=== PATIENT | female | born 1990 | race Caucasian/White ===

== ENCOUNTER 2023-02-02 12:02 | Emergency (ER) | payer BC, SELFPAY ==
[2023-02-02 12:06] VITALS: BP 121/80; PULSE 75; RESP 18; TEMP 36.8; O2SAT 100; BMI 24.0
--- NOTE | 2023-02-02 12:40 | US_ITS ---
The [address] [address] Patient Name: TAMRA LYON MRN: [id number] date: 1990 Sex: F Assigned Patient Location: ER Current Patient Location: ED[facility] Accession/Order Number: [id number] Exam Date: 02/02/2023 12:45 Report Date: 02/02/2023 14:12 At the request of: FLORENCIO BERUMEN Procedure: US right upper quadrant EXAM: US right upper quadrant HISTORY: N/V, RUQ abd pain COMPARISON: None. TECHNIQUE: Grayscale, color and Doppler FINDINGS: The liver is normal in size, contour and echotexture. No focal mass. Hepatopedal flow in the main portal vein with a velocity of 24 cm/s. The gallbladder is normal in size. The wall measures 1.7 mm, normal. Negative sonographic Chavez sign. The common bile duct measures 4 mm, normal. The visualized pancreas is normal The right kidney is normal measuring 10.4 x 5.1 x 3.9 cm. US/US right upper quadrant IMPRESSION: No acute abnormality Electronically authenticated by: FELECIA VASQUEZ Date: 02/02/2023 14:12
[2023-02-02] MEDS: ONDANSETRON 4 MG RAPDIS TABLET SL (12:47)
[2023-02-02] MEDS: HYOSCYAMINE SULFATE 0.125 MG TAB.SUBL SL (12:47)
[2023-02-02 13:09] LABS: Basophils Percent Auto 0.4 % (0.2-2.0); Eosinophils Absolute Auto 0.2 10^3/uL (0.0-0.7); Eosinophils Percent Auto 2.5 % (0.9-7.0); Hematocrit 36.9 % (36.0-48.0); Hemoglobin 12.6 g/dL (12.0-16.0); Immature Granulocytes Abs Auto 0.02 10^3/uL (0.00-0.03); Immature Granulocytes Pct Auto 0.3 % (0.0-0.5); Lymphocytes Absolute Auto 1.5 10^3/uL (1.2-3.8); Lymphocytes Percent Auto 21.7 % (20.5-60.0); Mean Corpuscular HGB Conc 34.1 g/dL (29.9-35.2); Mean Corpuscular Hemoglobin 31.5 pg (26.7-34.0); Mean Corpuscular Volume 92.3 fL (81.0-99.0); Mean Platelet Volume 9.8 fL (9.5-13.5); Monocytes Absolute Auto 0.6 10^3/uL (0.3-0.8); Neutrophils Absolute Auto 4.6 10^3/uL (1.4-6.5); Neutrophils Percent Auto 66.1 % (43.0-75.0); Platelet Count 207 10^3/uL (150-450); Red Cell Distribution Width 12.1 % (11.0-15.0); White Blood Count 6.9 10^3/uL (4.0-11.0)
[2023-02-02 13:25] LABS: Alanine Aminotransferase 27 U/L (14-59); Albumin Level 3.5 g/dL (3.4-5.0); Alkaline Phosphatase 53 U/L (46-116); Anion Gap 10.4; Aspartate Amino Transferase 16 U/L (15-37); Bilirubin Total 0.9 mg/dL (0.2-1.0); Calcium 8.5 mg/dL (8.5-10.1); Carbon Dioxide 29.2 mmol/L (21.0-32.0); Chloride 104 mmol/L (98-107); Estimated GFR (African America >60 (>=60); Estimated GFR (Non-African Ame >60 (>=60); Globulin 3.5 g/dL; Glucose 94 mg/dL (74-106); Potassium 3.6 mmol/L (3.5-5.1); Sodium 140 mmol/L (136-145)
--- NOTE | 2023-02-02 13:45 | ED.NAVMDI1 ---
HPI - Nausea/Vomiting/Diarrhea General Chief complaint: Nausea/Vomiting/Diarrhea Stated complaint: DIRRHEA Time Seen by Provider: 02/02/23 12:10 Source: patient Mode of arrival: walk-in Limitations: no limitations History of Present Illness HPI Narrative: patient developed nausea, vomiting and diarrhea three days ago. She also had generalized abdominal cramping. By this morning she was able to keep down liquids and the vomiting had stopped but she still had nausea and diarrhea along with diffuse abdominal pain. No fever or chills. No urinary symptoms. Related Data Home Medications Medication Instructions Recorded Confirmed norethindrone 1 mg-ethinyl 1 tab PO DAILY 02/02/23 02/02/23 estradiol 20 mcg (21)-iron 75 mg (7) tablet (June FE 08/08 (28)) Previous Rx's Medication Instructions Recorded hyoscyamine sulfate 0.125 mg 0.125 mg PO Q6H PRN abdominal pain 02/02/23 sublingual tablet (Levsin/SL) #20 tabs ondansetron 4 mg disintegrating 4 mg PO Q6H PRN nausea and 02/02/23 tablet vomiting #20 tabs Allergies Allergy/AdvReac Type Severity Reaction Status Date / Time amoxicillin Allergy Intermediate Verified 02/02/23 12:11 Exam Narrative Exam Narrative: Nurses notes and vital signs reviewed and patient is not hypoxic. afebrile General: Well-appearing and in no apparent distress. Skin: Warm, dry, no pallor noted. No rash. Head: Normocephalic, atraumatic. Eye: Pupils are equal, round and EOMI. No scleral icterus. Ears, Nose, Mouth, and Throat: Oral mucosa is moist Cardiovascular: Regular Rate and Rhythm without murmur, gallop or rub. Respiratory: No accessory muscle use or respiratory distress. Lungs are clear to auscultation, no wheezing, rales or rhonchi Back: No CVA tenderness Musculoskeletal: normal ROM, no calf or popliteal tenderness, no lower extremity edema/swelling GI: Abdomen is soft, non-distended. Normal bowel sounds. No masses appreciated. mild epigastric and right upper quadrant tenderness to palpation. No rebound, guarding, or rigidity noted. Neurological: A&O x4. No cranial nerve dysfunction observed. No truncal ataxia. Moves all extremities. Sensation intact. Psychiatric: Cooperative and interactive. Normal mood and affect. Constitutional Vital Signs, click to edit/add: Last Vital Signs Temp 98.2 F 02/02/23 12:06 Pulse 75 02/02/23 12:06 Resp 18 02/02/23 12:06 BP 121/80 H 02/02/23 12:06 Pulse Ox 100 02/02/23 12:06 O2 Del Method Room Air 02/02/23 12:06 Course Vital Signs Vital signs: Vital Signs Temperature 98.2 F 02/02/23 12:06 Pulse Rate 75 02/02/23 12:06 Respiratory Rate 18 02/02/23 12:06 Blood Pressure 121/80 H 02/02/23 12:06 Pulse Oximetry 100 02/02/23 12:06 Oxygen Delivery Method Room Air 02/02/23 12:06 Temperature 98.2 F 02/02/23 12:06 Pulse Rate 75 02/02/23 12:06 Respiratory Rate 18 02/02/23 12:06 Blood Pressure 121/80 H 02/02/23 12:06 Pulse Oximetry 100 02/02/23 12:06 Oxygen Delivery Method Room Air 02/02/23 12:06 MDM - Nausea/Vomiting/Diarrhea MDM Narrative Medical decision making narrative: patient felt better after receiving oral dissolvable Zofran and oral dissolvable Levsin. Blood tests were unremarkable. Gallbladder ultrasound is unremarkable. She was discharged home with prescriptions for more Zofran and Levsin and instructions to follow-up with her primary care provider and return to the emergency Department as needed. I would expect the diarrhea to improve over the next few days Lab Data Attestation: I reviewed the patient's lab results. Labs: Lab Results 02/02/23 Range/Units 12:57 WBC 6.9 (4.0-11.0) 10^3/uL RBC 4.00 L (4.20-5.40) 10^6/uL Hgb 12.6 (12.0-16.0) g/dL Hct 36.9 (36.0-48.0) % MCV 92.3 (81.0-99.0) fL MCH 31.5 (26.7-34.0) pg MCHC 34.1 (29.9-35.2) g/dL RDW 12.1 (11.0-15.0) % Plt Count 207 (150-450) 10^3/uL MPV 9.8 (9.5-13.5) fL Neut % (Auto) 66.1 (43.0-75.0) % Lymph % (Auto) 21.7 (20.5-60.0) % [place] % (Auto) 9.0 (1.7-12.0) % Eos % (Auto) 2.5 (0.9-7.0) % Baso % (Auto) 0.4 (0.2-2.0) % Neut # (Auto) 4.6 (1.4-6.5) 10^3/uL Lymph # (Auto) 1.5 (1.2-3.8) 10^3/uL [place] # (Auto) 0.6 (0.3-0.8) 10^3/uL Eos # (Auto) 0.2 (0.0-0.7) 10^3/uL Baso # (Auto) 0.0 (0.0-0.1) 10^3/uL Abs Immat Gran (auto) 0.02 (0.00-0.03) 10^3/uL Imm/Tot Granulo (auto) 0.3 (0.0-0.5) % Sodium 140 (136-145) mmol/L Potassium 3.6 (3.5-5.1) mmol/L Chloride 104 (98-107) mmol/L Carbon Dioxide 29.2 (21.0-32.0) mmol/L Anion Gap 10.4 BUN 9.0 (7.0-18.0) mg/dL Creatinine 0.75 (0.55-1.02) mg/dL Est GFR ( Amer) >60 (>=60) Est GFR (Non-Af Amer) >60 (>=60) BUN/Creatinine Ratio 12.0 Glucose 94 (74-106) mg/dL Calcium 8.5 (8.5-10.1) mg/dL Total Bilirubin 0.9 (0.2-1.0) mg/dL AST 16 (15-37) U/L ALT 27 (14-59) U/L Alkaline Phosphatase 53 (46-116) U/L Total Protein 7.0 (6.4-8.2) g/dL Albumin 3.5 (3.4-5.0) g/dL Globulin 3.5 g/dL Albumin/Globulin Ratio 1.0 Imaging Data RUQ US: Radiologist's impression: Patient Name: TAMRA LYON MRN: [id number] date: 1990 Sex: F Assigned Patient Location: ER Current Patient Location: ED.MAIN Accession/Order Number: [id number] Exam Date: 02/02/2023 12:45 Report Date: 02/02/2023 14:12 At the request of: FLORENCIO BERUMEN Procedure: US right upper quadrant EXAM: US right upper quadrant HISTORY: N/V, RUQ abd pain COMPARISON: None. TECHNIQUE: Grayscale, color and Doppler FINDINGS: The liver is normal in size, contour and echotexture. No focal mass. Hepatopedal flow in the main portal vein with a velocity of 24 cm/s. The gallbladder is normal in size. The wall measures 1.7 mm, normal. Negative sonographic Chavez sign. The common bile duct measures 4 mm, normal. The visualized pancreas is normal The right kidney is normal measuring 10.4 x 5.1 x 3.9 cm. IMPRESSION: No acute abnormality Electronically authenticated by: FELECIA VASQUEZ Date: 02/02/2023 14:12 Discharge Plan Discharge Chief Complaint: Nausea/Vomiting/Diarrhea Clinical Impression: Gastroenteritis Patient Disposition: Home, Self-Care Time of Disposition Decision: 13:45 Prescriptions / Home Meds: New hyoscyamine sulfate [Levsin/SL] 0.125 mg tablet, sublingual 0.125 mg PO Q6H PRN (Reason: abdominal pain) Qty: 20 0RF ondansetron 4 mg tablet,disintegrating 4 mg PO Q6H PRN (Reason: nausea and vomiting) Qty: 20 0RF No Action norethindrone-e.estradiol-iron [08/08 (28)] 1 mg-20 mcg (21)/75 mg (7) tablet 1 tab PO DAILY Stand Alone Forms: Portal Instructions Referrals: Shaikh Chatterjee MD [Primary Care Provider] - 1 week
== END 2023-02-02 14:28 | disposition home or self-care (01) ==
PROVIDERS: Emergency Provider Emergency Medicine; PCP Internal Medicine
DX: K52.9 Noninfective gastroenteritis and colitis, unspecified (principal)
CPT/HCPCS: 36415; 76705; 80053; 85025; 87507; 99284

== ENCOUNTER 2023-08-25 16:21 | Outpatient (OUT) | payer OTHER, SELFPAY ==
[2023-08-25 16:46] LABS: Basophils Percent Auto 0.6 % (0.2-2.0); Eosinophils Absolute Auto 0.3 10^3/uL (0.0-0.7); Eosinophils Percent Auto 3.7 % (0.9-7.0); Hematocrit 39.8 % (36.0-48.0); Hemoglobin 13.5 g/dL (12.0-16.0); Immature Granulocytes Abs Auto 0.01 10^3/uL (0.00-0.03); Immature Granulocytes Pct Auto 0.1 % (0.0-0.5); Lymphocytes Percent Auto 28.8 % (20.5-60.0); Mean Corpuscular HGB Conc 33.9 g/dL (29.9-35.2); Mean Corpuscular Hemoglobin 31.3 pg (26.7-34.0); Mean Corpuscular Volume 92.1 fL (81.0-99.0); Monocytes Absolute Auto 0.7 10^3/uL (0.3-0.8); Monocytes Percent Auto 9.6 % (1.7-12.0); Neutrophils Absolute Auto 3.9 10^3/uL (1.4-6.5); Neutrophils Percent Auto 57.2 % (43.0-75.0); Platelet Count 225 10^3/uL (150-450); Red Blood Count 4.32 10^6/uL (4.20-5.40); White Blood Count 6.8 10^3/uL (4.0-11.0)
[2023-08-25 17:02] LABS: Erythrocyte Sedimentation Rate 16 mm/hr (<=20)
--- NOTE | 2023-08-25 17:07 | XR_ITS ---
The [address] [address] Patient Name: TAMRA STARK MRN: [id number] date: 1990 Sex: F Assigned Patient Location: LAB Current Patient Location: Accession/Order Number: [id number] Exam Date: 08/25/2023 16:59 Report Date: 08/26/2023 13:02 At the request of: SHAIKH MARION Procedure: XR sacroiliac joint MICHAEL EXAM: XR sacroiliac joint MICHAEL HISTORY: Sacroiliac pain M53.3 COMPARISON: There is no appropriate prior study for comparison. The alignment is anatomical. The lower lumbar spine and SI joints are unremarkable. There is no acute fracture or dislocation. The interarticular joint spaces are preserved. Pelvic phleboliths are noted. No significant soft tissue abnormality is noted. XR/XR sacroiliac joint MICHAEL IMPRESSION: No acute finding. Electronically authenticated by: DALE MENDEZ Date: 08/26/2023 13:02
[2023-08-25 17:21] LABS: Alanine Aminotransferase 18 U/L (14-59); Albumin Globulin Ratio 0.9; Albumin Level 3.7 g/dL (3.4-5.0); Alkaline Phosphatase 54 U/L (46-116); Anion Gap 12.9; Aspartate Amino Transferase 13 U/L (15-37); BUN Creatinine Ratio 13.6; Bilirubin Total 1.9 mg/dL (0.2-1.0); Calcium 8.8 mg/dL (8.5-10.1); Carbon Dioxide 28.6 mmol/L (21.0-32.0); Chloride 102 mmol/L (98-107); Estimated GFR (African America >60 (>=60); Estimated GFR (Non-African Ame >60 (>=60); Globulin 3.9 g/dL; Glucose 92 mg/dL (74-106); Potassium 3.5 mmol/L (3.5-5.1); Sodium 140 mmol/L (136-145); TSH W/ REFLEX FT4 3.106 uIU/mL (0.358-3.740); Total Protein 7.6 g/dL (6.4-8.2)
[2023-08-25 17:23] LABS: C Reactive Protein <0.50 mg/dL (<=0.50)
[2023-09-02 11:08] LABS: HLA B 27 Disease Association Negative (.)
== END 2023-08-25 16:22 | disposition home or self-care (01) ==
PROVIDERS: PCP Internal Medicine; Visit Provider Internal Medicine
DX: R94.6 Abnormal results of thyroid function studies (principal); M53.3 Sacrococcygeal disorders, not elsewhere classified; D69.3 Immune thrombocytopenic purpura
CPT/HCPCS: 36415; 72202; 80053; 81374; 84443; 85025; 85652; 86140

== ENCOUNTER 2023-09-04 08:49 | Outpatient (RCR) | payer OTHER, SELFPAY | END 2023-10-28 11:11 | disposition home or self-care (01) | LOC: PT 08:49 | PROVIDERS: PCP Internal Medicine; Visit Provider Internal Medicine | DX: M53.3 Sacrococcygeal disorders, not elsewhere classified (principal); M54.50 Low back pain, unspecified; M46.1 Sacroiliitis, not elsewhere classified | CPT/HCPCS: 97010; 97014; 97110; 97140; 97161 ==

== ENCOUNTER 2023-10-27 20:48 | Outpatient (REF) | payer OTHER, SELFPAY ==
[2023-11-03 15:09] LABS: Age Gdln ACOG Testing Note (.); HPV Aptima Negative (Negative); IGP, Aptima HPV, rfx 16/18,45 Note (.)
== END 2023-10-27 20:49 | disposition home or self-care (01) ==
LOC: LAB 20:48
PROVIDERS: PCP Internal Medicine; Visit Provider Obstetrics & Gynecology
DX: Z01.419 Encounter for gynecological examination (general) (routine) without abnormal findings (principal)
CPT/HCPCS: 87624; G0145

== ENCOUNTER 2025-03-08 19:45 | Outpatient (REF) | payer OTHER, SELFPAY ==
--- OUTSIDE RECORDS SUMMARY | 2025-03-08 14:00 | XMS_ITS | Encounter Summary ---
Author Organization [facility] Address [address] [place] [address] Care Team Providers Care Supervisor Pipelines Name Role Phone Shaikh FRANCISCO Chatterjee Primary Care Provider [phone] Reason for Visit * Reason Comments Well Women Visit Encounter Details Date Type Department Care Team (Latest Contact Info) Description 03/08/2025 2:00 PM EDT Procedure Visit [facility] [address] [place] [id number] Charlotte Sampson PA [address] [place], [id number] Well woman exam with routine gynecological exam; Uses control Social History Tobacco Use Types Packs/Day Years Used Date Smoking Tobacco: Every Day Cigarettes Comments Unknown Sex and Gender Information Value Date Recorded Sex Assigned at Not on file Legal Sex Female 7:10 PM EDT Gender Identity Not on file Sexual Orientation Not on file documented as of this encounter Last Filed Vital Signs Vital Sign Reading Time Taken Comments Blood Pressure 118/84 03/08/2025 2:00 PM EDT Pulse - - Temperature - - Respiratory Rate - - Oxygen Saturation - - Inhaled Oxygen Concentration - - Weight 64.5 kg (142 lb 4 oz) 03/08/2025 2:00 PM EDT Height - - Body Mass Index 24.42 08/24/2023 5:25 PM EST documented in this encounter Progress Notes * DK Samaniego - 03/08/2025 2:00 PM EDT Reason for Appointment: Patient ID: Roseanne Davey is a 34 y.o. female who presents for Well Women Visit Patient presents today for Annual Exam. MEDICATIONS Current Outpatient Medications Medication Instructions norethindrone-ethinyl estradiol (08/08) 1-20 MG-MCG tablet 1 tablet, Oral, Every morning ALLERGIES Allergies Allergen Reactions Amoxicillin Rash Sulfa Antibiotics Hives and Rash PROBLEMS Active Ambulatory Problems Diagnosis Date Noted Piriformis syndrome of right side 08/24/2023 Sacroiliitis 08/24/2023 Idiopathic thrombocytopenia purpura (HCC) 08/24/2023 Wellness examination 08/24/2023 Abnormal thyroid function test 08/24/2023 Sacroiliac pain 08/24/2023 Resolved Ambulatory Problems Diagnosis Date Noted No Resolved Ambulatory Problems Past Medical History: Diagnosis Date Anxiety and depression Hand injury, right, sequela Human papilloma virus Hyperthyroidism Hypothyroidism, adult Opioid abuse [place] 05/14/2021 Request for sterilization Tobacco user HISTORY PAST MEDICAL HISTORY SOCIAL HISTORY Past Medical History: Diagnosis Date Anxiety and depression Reports depression since child . Intermittent suicidal ideation. Hx of opioid drug abuse. No hx of suicide attempt. Intermittent panic attacks. Hand injury, right, sequela Right hand injury-swelling. Improving Xrays in ER negative for fracture. Human papilloma virus Hyperthyroidism Reports palpitations, heat intolerance, hair loss with prior hx of thyroid problems Hypothyroidism, adult Opioid abuse ([facility]) 05/14/2021 Vivitrol Treatment Request for sterilization Tobacco user Social History Tobacco Use Smoking status: Every Day Types: Cigarettes Smokeless tobacco: Not on file Substance Use Topics Alcohol use: Not on file Drug use: Not Currently Comment: Currently enrolled in Vivitrol Program FAMILY HISTORY Family History Problem Relation Name Age of Onset Depression Mother Hyperlipidemia Father Hypertension Father SURGICAL HISTORY Past Surgical History: Procedure Laterality Date CERVICAL BIOPSY W/ LOOP ELECTRODE EXCISION 2008 REVIEW OF SYSTEMS Review of Systems: Review of Systems All other systems reviewed and are negative. OBJECTIVE Objective: Physical Exam Constitutional: Appearance: Normal appearance. She is well-developed. Genitourinary: Vulva normal. Right Adnexa: not tender and no mass present. Left Adnexa: not tender and no mass present. No cervical discharge. Breasts: Breasts are soft. Right: Normal. Left: Normal. HENT: Head: Normocephalic. Nose: Nose normal. Mouth/Throat: Mouth: Mucous membranes are moist. Cardiovascular: Rate and Rhythm: Normal rate and regular rhythm. Pulmonary: Effort: Pulmonary effort is normal. Breath sounds: Normal breath sounds. Abdominal: General: Bowel sounds are normal. There is no distension. Palpations: Abdomen is soft. Tenderness: There is no abdominal tenderness. There is no guarding or rebound. Musculoskeletal: General: No swelling. Normal range of motion. Cervical back: Normal range of motion. Right lower leg: No edema. Left lower leg: No edema. Neurological: General: No focal deficit present. Mental Status: She is alert and oriented to person, place, and time. Skin: General: Skin is warm and dry. Psychiatric: Mood and Affect: Mood normal. Behavior: Behavior normal. Vitals and nursing note reviewed. Exam conducted with a hunter trapper present. Vitals: Estimated body mass index is 24.42 kg/m?? as calculated from the following: Height as of 08/24/23: 5' 4 . Weight as of this encounter: 142 lb 4 oz. BP: 118/84 No LMP recorded (lmp unknown). (Menstrual status: Oral Contraception). ASSESSMENT & PLAN ICD-10-CM 1. Well woman exam with routine gynecological exam Z01.419 Pap Smear HPV DNA probe, amplified 2. Uses control Z78.9 norethindrone-ethinyl estradiol (08/08) 1-20 MG-MCG tablet Annual Exam: Patient presents today for an annual exam. Patient states she is doing well and has no complaints. Pap was obtained without difficulty. Orders Placed This Encounter Procedures HPV DNA probe, amplified Follow Up: Patient is to return in one year for annual unless needed otherwise. Documented by Rimma Saenz LPN on behalf of: DK Samaniego documented in this encounter Plan of Treatment Upcoming Encounters Date Type Department Care Team (Late st Contact Info) Description 03/12/2026 2:00 PM EDT Procedure Visit [facility] [address] [place] [phone] Charlotte Sampson PA [address] [place] [address] Scheduled Orders Name Type Priority Associated Diagnoses Orde r Schedule Pap Smear Pathology and Cytology Routine Well woman exam with routine gynecological exam Ordered: 03/08/2025 HPV DNA probe, amplified Microbiology Routine Well woman exam with routine gynecological exam Ordered: 03/08/2025 documented as of this encounter Procedures Procedure Name Priority Date/Time Associated Diagnosis Comments PAP SMEAR Routine 10/27/2023 12:00 AM EDT documented in this encounter Results * Pap Smear (10/27/2023 12:00 AM EDT) Swab Cervical swab / Unknown us Berny Enrique DO LAB CYTOLOGY ORDERABLES Final Re sult EXTERNAL LAB documented in this encounter Visit Diagnoses Diagnosis Well woman exam with routine gynecological exam Routine gynecological examination Uses control documented in this encounter Care Teams Supervisor Pipelines Relationship Specialty Start Date End Date Shaikh Chatterjee MD [address] [place] [address] PCP - General Internal Medicine 08/18/23 documented as of this encounter
--- OUTSIDE RECORDS SUMMARY | 2025-03-08 19:49 | XMS_ITS | Encounter Summary ---
Author Organization [facility] Address [address] [place] [address] Care Team Providers Care Supervisor Wall Mirror Department Name Role Phone Shaikh FRANCISCO Chatterjee Primary Care Provider [phone] Encounter Details Date Type Department Care Team (Late st Contact Info) Description 08/26/2023 Clinisync Result Encounter [facility] External Department Unsolicited Shaikh Chatterjee MD [address] [place] [phone] Social History Tobacco Use Types Packs/Day Years Used Date Smoking Tobacco: Every Day Cigarettes Comments Unknown Sex and Gender Information Value Date Recorded Sex Assigned at Not on file Legal Sex Female 7:10 PM EDT Gender Identity Not on file Sexual Orientation Not on file documented as of this encounter Plan of Treatment Upcoming Encounters Date Type Department Care Team (Late st Contact Info) Description 03/12/2026 2:00 PM EDT Procedure Visit [facility] [address] [address] Charlotte Sampson PA [address] [address] documented as of this encounter Procedures Procedure Name Priority Date/Time Associated Diagnosis Comments XR SACROILIAC JOINT 08/26/2023 1 :02 PM EST documented in this encounter Results * XR SACROILIAC JOINT (08/26/2023 1:02 PM EST) Anatomical Region Laterality Modality Radiographic Betty ging 08/26/2023 1:02 PM EST Narrative 08/26/2023 1:05 [place] [address] XRay Report Signed Patient: TAMRA DAVEY MR#: [id number] : 1990 Acct:[id number] Age/Sex: 32 / F ADM Date: 08/25/23 Loc: LAB Attending Dr: Shaikh Shena Rodriguez Ordering Physician: Shaikh Jennifer Chatterjee Date of Service: 08/25/23 Procedure(s): XR sacroiliac joint MICHAEL Accession Number(s): [id number] cc: Shaikh Jennifer Chatterjee The [address] [address] Patient Name: TAMRA DAVEY MRN: [id number] date: 1990 Sex: F Assigned Patient Location: LAB Current Patient Location: Accession/Order Number: [id number] Exam Date: 08/25/2023 16:59 Report Date: 08/26/2023 13:02 At the request of: SHAIKH SHENA Procedure: XR sacroiliac joint MICHAEL EXAM: XR sacroiliac joint MICHAEL HISTORY: Sacroiliac pain M53.3 COMPARISON: There is no appropriate prior study for comparison. The alignment is anatomical. The lower lumbar spine and SI joints are unremarkable. There is no acute fracture or dislocation. The interarticular joint spaces are preserved. Pelvic phleboliths are noted. No significant soft tissue abnormality is noted. XR/XR sacroiliac joint MICHAEL IMPRESSION: No acute finding. Electronically authenticated by: FRANCISCO JAVIER JANE Date: 08/26/2023 13:02 Dictated By: Francisco Javier Jane M.D. Signed By: 08/26/23 1301 DD/ 1302 TD/TT: Boardinghouse Keeper: Procedure Note Radiology, Radiologist, MD - 08/27/2023 The [place] [id number] XRay Report Signed Patient: TAMRA DAVEY MMR#: [id number] : 1990Acct:[id number] Age/Sex: 32 / FADM Date: 08/25/23 Loc: LAB Attending Dr: Shaikh Shena Rodriguez Ordering Physician: Shaikh Jennifer Chatterjee Date of Service: 08/25/23 Procedure(s): XR sacroiliac joint MICHAEL Accession Number(s): [id number] cc: Shaikh Jennifer Chatterjee [address] [address] Patient Name: TAMRA DAVEY MRN: [id number] date: 1990 Sex: F Assigned Patient Location: LAB Current Patient Location: Accession/Order Number: [id number] Exam Date: 08/25/2023 16:59 Report Date: 08/26/2023 13:02 At the request of: SHAIKH SHENA Procedure: XR sacroiliac joint MICHAEL EXAM: XR sacroiliac joint MICHAEL HISTORY: Sacroiliac pain M53.3 COMPARISON: There is no appropriate prior study for comparison. The alignment is anatomical. The lower lumbar spine and SI joints are unremarkable. There is no acute fracture or dislocation. The interarticular joint spaces are preserved. Pelvic phleboliths arenoted. No significant soft tissue abnormality is noted. XR/XR sacroiliac joint MICHAEL IMPRESSION: No acute finding. Electronically authenticated by: FRANCISCO JAVIER JANE Date: 08/26/2023 13:02 Dictated By: Francisco Javier Jane M.D. Signed By:08/26/23 1305 DD/ 1302 TD/TT: Boardinghouse Keeper: Shaikh Shena SINGH IMG XR PROCEDURES Final Result documented in this encounter Visit Diagnoses Not on filedocumented in this encounter Care Teams Supervisor Wall Mirror Department Relationship Specialty Start Date End Date Shaikh Chatterjee MD [address] [place] [address] PCP - General Internal Medicine 08/18/23 documented as of this encounter
--- OUTSIDE RECORDS SUMMARY | 2025-03-08 19:49 | XMS_ITS | CCD ---
Author Organization [facility] Care Team Providers Care Chief Controller Station Name Role Phone Chuyita Myles Unavailable Unavailable NONE, XXXX Unavailable Unavailable KovesRodriguez sanders Unavailable Unavailable Kovestommy, Rodriguez Unavailable Unavailable NONE, XXXX Unavailable Unavailable Yamileth Vincent Unavailable SHAIKH Kenny CHATTERJEE Primary Care Unavailable SHAIKH Kenny CHATTERJEE Admitting Unavailable SHAIKH Kenny CHATTERJEE Attending Unavailable CHRISTINA, DR FELECIA Engle Consulting Unavailable SHAIKH Kenny CHATTERJEE Consulting Unavailable SHAIKH Kenny CHATTERJEE Primary Care Unavailable SHAIKH Kenny CHATTERJEE Admitting Unavailable SHAIKH Kenny CHATTERJEE Attending Unavailable SUSIE, DR ROXY Knight Consulting Unavailable SHAIKH Kenny CHATTERJEE Consulting Unavailable KARASIK ., DR LOPEZ Admitting Unavailabl e KARASIK ., DR LOPEZ Attending Unavailabl e FAWWABasia, VALENZUELA H Primary Care Unavailable KARASIK ., DR LOPEZ Consulting Unavailabl e PAY ., DR GIBBS Consulting Unavailable MARION, VALENZUELA H Primary Care Unavailable PAY ., DR GIBBS Admitting Unavailable PAY ., DR GIBBS Attending Unavailable BARRIE MOLINA Consulting Unavailable Francy Haider Unavailable Ashley Irizarry Unavailable SHAIKH CHATTERJEE Attending Unavailable RUBY MARCOS Attending Unavailable Shaikh Chatterjee MD Primary Care Provider Allergies Allergy Classification Reported Allergen(s) Allergy Type Date of Onset Reaction(s) Facility (5 sources) Amoxicillin Drug Allergy 08-18-2023 [facility] (1 source) Amoxicillin Drug Allergy 07-25-2015 [facility] (2 sources) Sulfonamides (Antibiotic) Drug Allergy 08-18-2023 Hives, Rash [facility] Medications Current Medications Medication Drug Class(es) Dates Sig (Normalized) Sig (Original) cephalexin 500 mg oral capsule (1 source) Cephalosporin Antibacterial Start: 04-03-2023 take 1 capsule by mouth every eight hours Cephalexin 500 MG 1 capsule Orally tid for 10 day(s) Mar, Active Ethinyl Estradiol / Ferrous fumarate / Norethindrone (6 sources) Estrogen Start: 03-08-2025 norethindrone-et hinyl estradiol (08/08) 1-20 MG-MCG tablet Indications: Uses control Take 1 tablet by mouth in the morning. 84 tablet 4 03/08/2025 Active Start: 01-30-2025 End: 03-08-2025 norethindrone-ethinyl estrad iol (08/08) 1-20 MG-MCG tablet Indications: Uses control Take 1 tablet by mouth in the morning. 84 tablet 01/30/2025 03/08/2025 Discontinued (Reorder) Start: 01-30-2025 norethindrone- ethinyl estradiol (08/08) 1-20 MG-MCG tablet Indications: Uses control Take 1 tablet by mouth in the morning. 84 tablet 01/30/2025 Active Loestrin 1.5/30 (21) Active Norethindrone-E.Estradiol-Ir on (Aurovela Fe 08-08 ()) 1 mg-20 mcg (21)/75 mg (7) tablet (1 source) Start: 07-06-2024 Norethindrone-E.Estradiol-Ir on (Aurovela Fe 08-08 ()) 1 mg-20 mcg (21)/75 mg (7) tablet Active TAB PO July 06, 2024 1:00am Completed/Discontinued Medications Medication Drug Class(es) Dates Sig (Normalized) Sig (Original) [id number] 200 actuat albuterol 0.09 mg/actuat metered dose inhaler (3 sources) beta2-Adrenergic Agonist Start: 06-13-2022 take 2 puff(s) by inhalation every four hours as needed Albuterol Sulfate HFA 108 (90 Base) MCG/ACT 2 puffs as needed Inhalation every 4 hrs May, Not-Taking Start: 06-13-2022 take 2 puff(s) by in halation every four hours as needed Albuterol Sulfate HFA 108 (90 Base) MCG/ACT 2 puffs as needed Inhalation every 4 hrs May, Not-Taking dextromethorphan hydrobromide 15 mg / guaiFENesin 400 mg / pseudoephedrine hydrochloride 60 mg oral tablet (1 source) alpha-Adrenergic Agonist, Uncompetitive Y-noirlw-T-aspartate Receptor Antagonist, Sigma-1 Agonist Start: 07-06-2024 End: 11-14-2024 take 4 tablets by mouth every twenty-four hours as needed Schdvlwofzmjcbe-Eo-Cxyqicgtrmm (Capmist Dm) 60-15-400 mg tablet Discontinued 1 TAB PO Every 4 hours as needed for cold symptoms 20 July 06, 2024 1:00am November 14, 2024 9:09am do not exceed 4 doses per 24 hrs doxycycline hyclate 100 mg oral capsule (1 source) Tetracycline-class Drug Start: 07-06-2024 End: 11-14-2024 take 1 capsule by mouth twice daily at mealtime Doxycycline Hyclate 100 mg capsule Discontinued 100 MG PO Twice daily 14 July 06, 2024 1:00am November 14, 2024 9:09am with food methylPREDNISolon e 4 mg oral tablet (5 sources) Corticosteroid Start: 07-06-2024 End: 11-14-2024 take 1 tablet by mouth once Methylprednisolone (Medrol (Myke)) 4 mg tablets,dose pack Discontinued 0 PO per package directions July 06, 2024 1:00am November 14, 2024 9:09am PO PER PKG DIR for 6 days Start: 06-13-2022 Medrol 4 MG as directed Orally As Directed for 6 days Mar, Active Problems Active Problems Problem Classification Problem Date Documented Da te Episodic/Chronic Acute bronchitis (1 source) Acute bronchitis, unspecified Episodic Coagulation and hemorrhagic disorders (2 sources) Immune thrombocytopenia; 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] Onset: 4 08-24-2023 Chronic Conditions associated with dizziness or vertigo (4 sources) Dizziness and giddiness; Translations: [DIZZINESS AND GIDDINESS] Onset: 3 Episodic Inflammation; infection of eye (except that caused by tuberculosis or sexually transmitteddisease) (4 sources) Acute conjunctivitis; Translations: [Acute conjunctivitis] Episodic Other ear and sense organ disorders (1 source) Impacted cerumen, left ear Episodic Other gastrointestinal disorders (3 sources) Constipation; Translations: [Constipation, unspecified] Episodic Other nervous system disorders (2 sources) Right-sided piriformis syndrome; Translations: [Lesion of sciatic nerve, right lower limb] Onset: 4 08-24-2023 Chronic Other upper respiratory infections (4 sources) Acute sinusitis; Translations: [Acute sinusitis] Episodic Residual codes; unclassified (1 source) Contraception ; Translations: [Other specified health status] 03-08-2025 Episodic Spondylosis; intervertebral disc disorders; other back problems (2 sources) Inflammation of sacroiliac joint; Translations: [Sacroiliitis, not elsewhere classified] Onset: 4 08-24-2023 Chronic Past or Other Problems Problem Classification Problem Date Documented Date Episodic/Chronic Contraceptive and procreative management (1 source) Presence of (intrauterine) contraceptive device; Translations: [PRESENCE IU CONTRACEPT DEVICE] Onset: 11-04-2021 Episodic E Codes: Natural/environment (1 source) Exposure to other specified factors, initial encounter; Translations: [EXPOSURE OTHER SPEC FACTORS INITIAL] Onset: 11-04-2021 Episodic Immunizations and screening for infectious disease (1 source) Encounter for screening for human papillomavirus (HPV); Translations: [ENC SCREENING HUMAN PAPILLOMAVIRUS] Onset: 03-06-2022 Episodic Other connective tissue disease (4 sources) Pain in right hand; Translations: [PAIN IN RIGHT HAND] Onset: 11-03-2021 Episodic Other injuries and conditions due to external causes (4 sources) Unspecified injury of right wrist, hand and finger(s), sequela; Translations: [UNS INJ RT WRIST HAND FINGERS SEQ] Onset: 11-14-2021 Episodic Other screening for suspected conditions (not mental disorders or infectious disease) (6 sources) Encounter for screening for malignant neoplasm of cervix; Translations: [Thyroid function tests abnormal] Onset: 03-06-2022 Episodic Screening and history of mental health and substance abuse codes (1 source) Personal history of nicotine dependence; Translations: [PERSONAL HISTORY OF NICOTINE DEPEND] Onset: 11-04-2021 Episodic Spondylosis; intervertebral disc disorders; other back problems (2 sources) Sacroiliac joint pain; Translations: [Sacrococcygeal disorders, not elsewhere classified] Onset: 08-24-2023 08-24-2023 Episodic Superficial injury; contusion (1 source) Contusion of right hand, initial encounter; Translations: [CONTUSION RIGHT HAND INITIAL ENC] Onset: 11-04-2021 Episodic Unclassified (1 source) Cough R05.9 Results Test Name Value Interpretation Reference Range Facil ity Cytology Cervical or vaginal smear or scraping [facility] MRI BRAIN WO CON EXAMINATION: MRI BRAIN WO CON, 10/20/2022 3:41 PM EDT HISTORY: Dizziness and giddiness COMPARISON: None. TECHNIQUE: MRI of the brain was performed without IV contrast. FINDINGS: CEREBRUM: No edema, hemorrhage, mass, acute infarction, or inappropriate atrophy. CEREBELLUM: No edema, hemorrhage, mass, acute infarction, or inappropriate atrophy. BRAINSTEM: No edema, hemorrhage, mass, acute infarction, or inappropriate atrophy. CSF SPACES: Ventricles, cisterns, and sulci are appropriate for age. No hydrocephalus, subarachnoid hemorrhage, or mass. SKULL: No mass or other significant visible lesion. SINUSES: Limited views demonstrate no significant mucosal thickening or fluid. ORBITS: Limited views are unremarkable. OTHER: Negative. IMPRESSION: 1. Normal MRI of the brain. Electronically authenticated by: ROXY RICHARDS Date: 2022-10-20 17:02 Normal [facility] COVID/FLU/RSV RT-PCRon 06-13 SARS-CoV-2 (COVID-19) RNA ELLEN+probe Ql (Unsp spec) Negative [facility] Other COVID/FLU/RSV RT-PCR Negative [facility] Other Quick Strepon 06-13-2022 S. pyogenes Org specific cx Ql (Throat) Negative [facility] Other Quick Strep [facility] Other PAP ACOG PANEL 2: 30 to 65on 03-11-2022 . . Normal [facility] Comment on above: Result Comment: Performed at: WB Performed By: #### [id number] #### [facility] [address] [place] [address] Dr. Nellie Brock Age Gdln ACOG Testing 30-65 Normal [facility] Comment on above: Performed By: #### [id number] #### [facility] [address] [place] [address] Dr. Nellie Brock DIAGNOSIS: Comment Normal [facility] Comment on above: Result Comment: NEGATIVE FOR INTRAEPITHE LIAL LESION OR MALIGNANCY. Performed at: WB Performed By: #### [id number] #### [facility] [address] [place] [address] Dr. Nellie Brock HPV Aptima Negative Normal Negative [facility] Comment on above: Result Comment: This nucleic acid amplif ication test detects fourteen high-risk HPV types (16,18,31,33,35,39,45,51,52,56,58,59,66,68) without differentiation. Performed at: =G Performed By: #### [id number] #### [facility] [address] [place] [address] Dr. Nellie Brock Methodology: Comment Normal [facility] Comment on above: Result Comment: This liquid based ThinPr ep(R) pap test was screened with the use of an image guided system. Performed at: WB Performed By: #### [id number] #### [facility] [address] [place] [address] Dr. Nellie Brock Note: Comment Normal [facility] Comment on above: Result Comment: The Pap smear is a scree elena test designed to aid in the detection of premalignant and malignant conditions of the uterine cervix. It is not a diagnostic procedure and should not be used as the sole means of detecting cervical cancer. Both false-positive and false-negative reports do occur. . Performed at: WB Performed By: #### [id number] #### [facility] [address] [place] [address] Dr. Nellie Brock Performed by: Comment Normal [facility] Comment on above: Result Comment: Obdulia Anders Cytotechn ologist (ASCP) Performed at: WB Performed By: #### [id number] #### [facility] [address] [address] [address] Nellie Brock Specimen adequacy: Comment Normal [facility] Comment on above: Result Comment: Satisfactory for evaluat ion. Endocervical and/or squamous metaplastic cells (endocervical component) are present. Performed at: WB Performed By: #### [id number] #### [facility] [address] [address] [address] Nellie Brock XR HAND RT MIN 3Von 11-04-19 22 XR HAND RT MIN 3V EXAM: XR HAND RT MIN 3V DATE: 11/03/2021 10:57 AM EDT INDICATION: Pain COMPARISON: None. TECHNIQUE: 3 views right hand FINDINGS: No acute fracture. Normal osseous alignment. Normal bone mineral density. Joint spaces are preserved. Soft tissue swelling of the dorsal hand overlying the MCP joints. IMPRESSION: 1. No acute osseous abnormality. 2. Soft tissue swelling of the hand overlying the MCP joints. Electronically authenticated by: BARRIE MOLINA Date: 2021-11-03 11:20 Normal [facility] Vital Signs Date Time Vital Sign Value Performing Clinician Facility 03-08-2025 14:00-0400 Body mass index (BMI) [Ratio] 24.42 kg/m2 Charlotte ROOT Work Phone: [facility] 03-08-2025 14:00-0400 Body weight 64.52 kg Charlotte ROOT Work Phone: [facility] 03-08-2025 14:00-0400 Diastolic blood pressure 84 mm[Hg] Charlotte ROOT Work Phone: [facility] 03-08-2025 14:00-0400 Systolic blood pressure 118 mm[Hg] Charlotte ROOT Work Phone: [facility] 11-14-2024 09:10-0400 Body height 162.56 cm [facility] 11-14-2024 09:10-0400 Body mass index (BMI) [Ratio] 23.1 kg/m2 [facility] 11-14-2024 09:10-0400 Body temperature 98 [degF] [facility] 11-14-2024 09:10-0400 Body weight 61.23 kg [facility] 11-14-2024 09:10-0400 Diastolic blood pressure 60 mm[Hg] [facility] 11-14-2024 09:10-0400 Heart rate 86 /min [facility] 11-14-2024 09:10-0400 Respiratory rate 14 /min [facility] 11-14-2024 09:10-0400 SaO2% (BldA) [Mass fraction] 99 % [facility] 11-14-2024 09:10-0400 Systolic blood pressure 112 mm[Hg] [facility] 04-03-2023 16:35-0400 Body height 162.56 cm Ashley Cintronmond Other [facility] Other 04-03-2023 16:35-0400 Body mass index (BMI) [Ratio] 25.02 kg/m2 Ashley Cintronmond Other [facility] Other 04-03-2023 16:35-0400 Body temperature 98.5 [degF] Ashley Cintronmond Other [facility] Other 04-03-2023 16:35-0400 Body weight 66.13 kg Ashley Cintronmond Other [facility] Other 04-03-2023 16:35-0400 Diastolic blood pressure 68 mm[Hg] Ashley Edie Other [facility] Other 04-03-2023 16:35-0400 Respiratory rate 18 /min Ashley Edie Other [facility] Other 04-03-2023 16:35-0400 SaO2% (BldA) [Mass fraction] 97 % Ashley Edie Other [facility] Other 04-03-2023 16:35-0400 Systolic blood pressure 118 mm[Hg] Ashley Irizarry Other [facility] Other 11-27-2022 11:20-0400 Body height 162.56 cm Francy Haider Other [facility] Other 11-27-2022 11:20-0400 Body mass index (BMI) [Ratio] 24.03 kg/m2 Francy Haider Other [facility] Other 11-27-2022 11:20-0400 Body temperature 98.2 [degF] Francy Haider Other [facility] Other 11-27-2022 11:20-0400 Body weight 63.5 kg Francy Haider Other [facility] Other 11-27-2022 11:20-0400 Respiratory rate 18 /min Francy Haider Other [facility] Other 11-27-2022 11:20-0400 SaO2% (BldA) [Mass fraction] 98 % Francy Haider Other [facility] Other 06-13-2022 15:45-0500 Body height 162.56 cm Yamileth Vincent Other [facility] Other 06-13-2022 15:45-0500 Body mass index (BMI) [Ratio] 24.03 kg/m2 Yamileth Vincent Other [facility] Other 06-13-2022 15:45-0500 Body temperature 99.1 [degF] Yamileth Vincent Other [facility] Other 06-13-2022 15:45-0500 Body weight 63.5 kg Yamileth Vincent Other [facility] Other 06-13-2022 15:45-0500 Respiratory rate 18 /min Yamileth Vincent Other [facility] Other 06-13-2022 15:45-0500 SaO2% (BldA) [Mass fraction] 97 % Yamileth Vincent Other [facility] Other Encounters Encounter Date Encounter Type Care Provider Facility Start: 03-08-2025 End: 03-08-2025 Bamboo flowsheet Charlotte ROOT Work Phone: [facility] Start: 03-08-2025 End: 03-08-2025 Bamboo flowsheet Charlotte ROOT Work Phone: [facility] Start: 03-08-2025 End: 03-08-2025 Patient encounter procedure Charlotte ROOT Work Phone: [facility] Start: 03-08-2025 End: 03-08-2025 Periodic preventive med est patient 18-39 yrs Charlotte ROOT Work Phone: [facility] Comment on above: Well woman exam with routine gynecological exam; Uses control Start: 11-14-2024 End: 11-14-2024 ambulatory [facility] Work Phone: Start: 11-14-2024 End: 11-14-2024 Patient encounter procedure [facility] Work Phone: Start: 10-27-2023 End: 10-27-2023 ambulatory RUBY ENRIQUE Not Available Start: 08-24-2023 End: 08-24-2023 ambulatory SHAIKH NIMAWAD Not Available Start: 08-24-2023 Patient encounter status Charlotte ROOT Work Phone: [facility] Start: 04-03-2023 End: 04-03-2023 ambulatory Ashley Irizarry Other [facility] Other Start: 04-03-2023 Office outpatient vi sit 15 minutes Ashley Edie [facility] Start: 11-27-2022 End: 11-27-2022 ambulatory Francy Haider Other [facility] Other Start: 11-27-2022 Office outpatient vi sit 15 minutes Francy Vitaly [facility] Start: 10-20-2022 End: 10-21-2022 ambulatory SHAIKH Kenny CHATTERJEE Facility: Start: 06-13-2022 End: 06-13-2022 ambulatory Yamileth Vincent Other [facility] Other Start: 06-13-2022 Office outpatient vi sit 15 minutes Yamileth Vincent [facility] Start: 03-06-2022 End: 03-06-[address] JESSICA MCKEON . Facility: Start: 11-14-2021 End: 11-15-2021 ambulatory SHAIKH Kenny CHATTERJEE Facility:[facility] Start: 11-03-2021 End: 11-03-[address] BERNIE BLAS . Facility: Start: 04-21-2018 End: 04-22-2018 Patient encounter Rodriguez Patricia Facility:[id number] Procedures Date Procedure Procedure Detail Performing Clinician Start: 10-27-2023 Cytp cerv/vag auto t hin layer prep mnl screen Ruby Enrique DO Work Phone: Plan of Treatment Date Care Activity Detail Author Start: 03-12-2026 End: 03-12-2026 Patient encounter procedure 03/12/2026 2:00 PM EDT Procedure Visit [facility] [address] [place] [id number] Charlotte Sampson PA [address] [place] [address] [facility] Start: 03-08-2025 End: 03-08-2025 Patient encounter procedure 03/08/2025 2:00 PM EDT Procedure Visit JOE WONGGYJack [address] [place] [id number] Charlotte Sampson PA [address] [place] [address] Arrived [facility]E Luong [facility] Comment on above: Arrived Cytology Cervical or vaginal smear or scraping study Pap Smear Pathology and Cytology Routine Well woman exam with routine gynecological exam Ordered: 03/08/2025 [facility] Work Phone: Comment on above: Ordered: 03/08/2025 Human papilloma viru s DNA [Presence] in Unspecified specimen by Probe with amplification HPV DNA probe, amplified Microbiology Routine Well woman exam with routine gynecological exam Ordered: 03/08/2025 [facility] Comment on above: Ordered: 03/08/2025 Payers Date Payer Category Payer [facility] (unspecified) [employer] [id number] 2023 Private Health Insurance [id number] 1990 Unknown [id number] 1988 Unknown [id number] 1988 Unknown [id number] 1988 Unknown [id number] 1988 Unknown [id number] 1988 Unknown [id number] 1959 Unknown [id number] 1959 Unknown [id number] Unknown [id number] Social History Date Type Detail Facility Unknown if ever smoked [facility] Other Start: 10-27-2023 Sex Assigned At N [facility] Other Start: 11-14-2024 Tobacco smoking status VAIS Unknown if ever smoked [facility] Start: 11-14-2024 Sex Female (finding) [facility] Start: 1990 Sex Assigned At Female [facility] Start: 08-18-2023 Tobacco smoking status VAIS Smokes tobacco daily [facility] History of tobacco use Cigarette Smoker [facility] Start: 10-27-2023 History of Social function [facility] Start: 1990 Sex assigned at Not on file [facility] History of Present illness Narrative 03-08-2025 DK Samaniego - 03/08/2025 2:00 PM EDT Note Date & Type Note Facility 03-08-2025 History of Presen t illness Narrative Reason for Appointment: Patient ID: Roseanne Stark is a 34 y.o. female who presents [...] papilloma virus Hyperthyroidism Hypothyroidism, adult Opioid abuse ([facility]) 05/14/2021 Request for sterilization Tobacco user HISTORY [...] of thyroid problems Hypothyroidism, adult Opioid abuse ([facility]) 05/14/2021 Vivitrol Treatment Request for sterilization Tobacco [...] nursing note reviewed. Exam conducted with a consumer insights intern present. Vitals: Estimated body mass index is 24.42 kg/m as calculated from the following: Height as [...] of: DK Samaniego documented in this encounter [facility] Evaluation note 04-03-2023 Note Date & Type Note Facility 04-03-2023 Evaluation note Encounter Date Diagnosis Assessment Notes Mar, Left ear impacted cerumen (ICD-10 - H61.22) Cerumen impaction home care material was printed Drink plenty fluids, get plenty of rest. Take the cephalexin and Medrol Dosepak as prescribed until gone. Take Tylenol or Motrin as needed for aches pains or fevers. You may take Mucinex and/or Sudafed for congestion. Follow-up with your family physician if no improvement in 2 to 3 days Mar, Acute sinusitis, recurrence not specified, unspecified location (ICD-10 - J01.90) Sinusitis home care material was printed [facility] Other Evaluation note 11-27-2022 Note Date & Type Note Facility 11-27-2022 Evaluation note Encounter Date Diagnosis Assessment Notes November, Allergic conjunctivitis of right eye (ICD-10 - H10.11) Advised patient that this is likely viral/allergic in nature, no signs of bacterial infection on physical exam therefore antibiotics are not indicated, self-limiting. (Viral) Contagious for 24-72 hours. Supportive care as directed. Cool compress to eye several times a day, refrigerated artificial tears several times a day. Avoid using contacts at this time as it can attract allergens. Avoid scratching and rubbing eye. Advised patient she may call into urgent care if OTC treatment do not improve symptoms for Rx of ciprofloxacin drops. Immediate eval if symptoms worsen, eye pain, vision changes, redness and swelling occur around the eye, headache, fever, N/V or any other concerning symptoms. Patient verbalizes understanding and is agreeable to treatment plan. [facility] Other Evaluation note 06-13-2022 Note Date & Type Note Facility 06-13-2022 Evaluation note Encounter Date Diagnosis Assessment Notes May, Cough (ICD-10 - R05.9) covid, flu, rsv and strep all neg, see above. May, Acute bronchitis, unspecified organism (ICD-10 - J20.9) Discussed viral nature of bronchitis and how abx will not work for tx. Rx steroid as directed with food. Pt is to use inhaler as prescribed prn for cough and wheeze. Supportive care as directed. Push fluids and rest. Pt denied work note today. Pt is to take otc antipyretic prn for fever and aches. Pt is to take otc cough suppressant prn for cough. Pt is to be re-evaluated after tx if sx worsen or don't improve by pcp or UC. Discussed sx of resp distress - wheeze, sob, difficulty breathing and swallowing, chest tightness, or chest pain. Pt is to f/u immediately in ER if these sx present. Pt is to call the office with any questions or concerns regarding dx and tx. Pt understood and agreed to tx plan. [facility] Other Clinical Note 11-15-2021 Note Date & Type Note Facility 11-15-2021 Note PROCEDURE: XR HAND R T MIN 3V COMPARISON: 11/03/2021 HISTORY: Injury of finger of right hand FINDINGS: BONES:No fracture, acute abnormality, or significant arthropathy. SOFT TISSUES:Negative. No visible soft tissue swelling. EFFUSION:None visible. OTHER: Negative. IMPRESSION: No acute disease. Electronically authenticated by: FELECIA VASQUEZ Date: 2021-11-15 07:05 [facility] Evaluation note Note Date & Type Note Facility Evaluation note No assessment information 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 Sacroiliitis Sacroiliitis, not elsewhere classified Wellness examination Well woman exam with routine gynecological exam Routine gynecological examination Uses control documented in this encounter [facility] History general Narrative - Reported Note Date & Type Note Facility History general Narrative - Reported Type Surgical History LEEP Hospitalization History See Above [facility] Other Summary Purpose Family History No Family History Records FoundNo Family History Records FoundNo Family History Records Found Advance Directives Advance Directive Response Recorded Date/ Time Advance Directives No June 10:34am Chief Complaint and Reason for Visit Chief Complaint Admit Date Sinus congestion, cough November 14, 2024 9:05am Additional Source Comments INFORMATION SOURCE (unrecogn ized section and content) DATE CREATED AUTHOR 05/28/2018 [facility] DATE CREATED AUTHOR AUTHOR'S ORGANIZ ATION 10/25/2022 [facility] DATE CREATED AUTHOR AUTHOR'S ORGANIZ ATION 10/28/2023 [facility] EPIC REASON FOR VISIT (unrecogniz ed section and content) Reason Comments Well Women Visit Care Teams (unrecognized sec tion and content) Team Status: Active Member Role Status Dates PHYSICIAN NO FAMILY Primary Care Provider Active Team Status: Inactive Member Role Status Dates PHYSICIAN NO FAMILY Primary Care Provider Active Start: November 14, 2024 End: November 14, 2024 Farrah Juares APRN Attending Provider Active Start: November 14, 2024 End: November 14, 2024 Chief Controller Station Relationship Specialty Start Date End Date Shaikh Chatterjee MD [address] [place] [address] PCP - General Internal Medicine 08/18/23 Chief Controller Station Relationship Specialty Start Date End Date Shaikh Chatterjee MD [address] [place] [id number] PCP - General Internal Medicine 08/18/23 Goals (unrecognized section and content) Goals may be documented in a n alternate section FOR RECORDS PERTAINING TO PATIENTS WHO ARE OR HAVE BEEN ENROLLED IN A CHEMICAL DEPENDENCY/SUBSTANCEABUSE PROGRAM, SOME INFORMATION MAY BE OMITTED. This clinical summary was aggregated from multiple sources. Caution should be exercised in using it in the provision of clinical care. This summary normalizes information from multiple sources, and as a consequence, information in this document may materially change the coding, format and clinical context of patient data. In addition, data may be omitted in some cases. CLINICAL DECISIONS SHOULD BE BASED ON THE PRIMARY CLINICAL RECORDS. [facility]. provides no warranty or guarantee of the accuracy or completeness of information in this document.
--- OUTSIDE RECORDS SUMMARY | 2025-03-08 19:49 | XMS_ITS | Encounter Summary ---
Author Organization [facility] Address [address] [place] [address] Care Team Providers Care Front End Software Developer Name Role Phone Shaikh FRANCISCO Chatterjee Primary Care Provider [phone] Encounter Details Date Type Department Care Team (Late Contact Info) Description 03/08/2025 Bamboo flowsheet [facility] [address] [place] [address] Charlotte Sampson PA [address] [place], [facility] Social History Tobacco Use Types Packs/Day Years Used Date Smoking Tobacco: Every Day Cigarettes Comments Unknown Sex and Gender Information Value Date Recorded Sex Assigned at Not on file Legal Sex Female 7:10 PM EDT Gender Identity Not on file Sexual Orientation Not on file documented as of this encounter Plan of Treatment Upcoming Encounters Date Type Department Care Team (Late Contact Info) Description 03/12/2026 2:00 PM EDT Procedure Visit [facility] [address] [place] [address] Charlotte Sampson PA [address] [facility] [place] [address] documented as of this encounter Visit Diagnoses Not on filedocumented in this encounter Care Teams Front End Software Developer Relationship Specialty Start Date End Date Shaikh Chatterjee MD [address] [place] [phone] PCP - General Internal Medicine 08/18/23 documented as of this encounter
--- OUTSIDE RECORDS SUMMARY | 2025-03-08 19:49 | XMS_ITS | Clinical Summary ---
Author Organization [facility] Address [address] [place] [address] Care Team Providers Care Group Fitness Department Head Name Role Phone Shaikh FRANCISCO Chatterjee Primary Care Provider [phone] Allergies Active Allergy Reactions Criticality Noted Date Comments Amoxicillin Rash Low 08/18/2023 Sulfa Antibiotics Hives,Rash Low 08/18/2023 Medications norethindrone-e thinyl estradiol (08/08) 1-20 MG-MCG tabletIndicatio ns:Uses control Take 1 tablet by mouth in the morning. 84 tablet 4 5 Active norethindrone-e thinyl estradiol (08/08) 1-20 MG-MCG tabletIndicatio ns:Uses control Take 1 tablet by mouth in the morning. 84 tablet 5 03/08/20 25 Discontinu ed(Reorder ) Active Problems Problem Noted Date Diagnosed Date Piriformis syndrome of right side 08/24/2023 Sacroiliitis 08/24/2023 Assessment & Plan (08/24/2023 6:06 PM EST): Persistent sacral pain x 8 months now. Worse on sitting down. Radiation to bilateral post hips. No injury, no previous hx of surgery. Associated morning stiffness. Negative straight leg test. Given her persistent symptoms, young age, associated morning stiffness - need to r/o Ankylosing spondylosis. Ordered XR, ESR, CRP. Trial of meloxicam. Patient reports ibuprofen really helps her pain. Ordered PT eval for her. If persistent symptoms after conservative treatment, she will need an MRI. 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 Checks labs to ensure Plts are normal/stable. Wellness examination 08/24/2023 Assessment & Plan (08/24/2023 6:07 PM EST): Patient here for Annual Wellness Exam. Reviewed medical, surgical and social hx. Reviewed medication list. Health related questions and concerns addressed and answered. Patient provided appropriate education on chronic medical conditions and prescription medications. Upto-date on cervical cancer screening. Ordered labs for ITP, suspected due to her sacral pain. Too young for screening mammogram or colon cancer screening. Abnormal thyroid function test 08/24/2023 Assessment & Plan (08/24/2023 6:04 PM EST): Previous hx of abnormal Thyroid function test. Recheck to ensure thyroid function is normal. Sacroiliac pain 08/24/2023 Encounters Date Type Department Care Team Description 03/08/2025 2:00 PM EDT Procedure Visit [facility] [address] [place] [address] Charlotte Sampson PA Well woman exam with routine gynecological exam; Uses control 03/08/2025 Bamboo flowsheet [facility] [address] [place] [address] Charlotte Sampson PA 01/26/2025 Refill [facility] [address] [place] [address] Berny Nunez DO Uses control from Last 3 Months Family History Medical History Relation Name Comments Hyperlipidemia Father Hypertension Father Depression Mother Relation Name Status Comments Father Mother Social History Tobacco Use Types Packs/Day Years Used Date Smoking Tobacco: Every Day Cigarettes Tobacco Cessation:Ready to Q uit: Not Asked; Counseling Given: Not Answered Comments Unknown Sex and Gender Information Value Date Recorded Sex Assigned at Not on file Legal Sex Female 7:10 PM EDT Gender Identity Not on file Sexual Orientation Not on file Last Filed Vital Signs Vital Sign Reading Time Taken Comments Blood Pressure 118/84 03/08/2025 2:00 PM EDT Pulse 60 08/24/2023 5:25 PM EST Temperature 36.7 C (98 F) 08/24/2023 5:25 PM EST Respiratory Rate 15 08/24/2023 5:25 PM EST Oxygen Saturation 99% 08/24/2023 5:25 PM EST Inhaled Oxygen Concentration - - Weight 64.5 kg (142 lb 4 oz) 03/08/2025 2:00 PM EDT Height 162.6 cm (5' 4 ) 08/24/2023 5:25 PM EST Body Mass Index 24.42 08/24/2023 5:25 PM EST Plan of Treatment Upcoming Encounters Date Type Department Care Team (Late st Contact Info) Description 03/12/2026 2:00 PM EDT Procedure Visit [facility] [address] [place] [id number] Charlotte Sampson PA [address] [place], [place] [id number] [place] [facility] Address: [facility] [id number] [place] [address] Care Teams Group Fitness Department Head Relationship Specialty Start Date End Date Shaikh Chatterjee MD [address] [place] [address] PCP - General Internal Medicine 08/18/23
[2025-03-13 11:09] LABS: Age Gdln ACOG Testing Note (.); IGP, Aptima HPV, rfx 16/18,45 Note (.)
== END 2025-03-08 19:46 | disposition home or self-care (01) ==
LOC: LAB 19:45
PROVIDERS: Visit Provider Physician Assistant
DX: Z01.419 Encounter for gynecological examination (general) (routine) without abnormal findings (principal)
CPT/HCPCS: 87624; 88175